=== PATIENT | female | born 1975 | race Caucasian/White ===

== ENCOUNTER 2016-11-01 09:42 | Emergency (ER) | payer MEDICARE, OTHER ==
[2016-11-01 09:46] VITALS: RESP 18
[2016-11-01] MEDS ORDERED: SODIUM CHLORIDE 0.9% 1,000 ML IV STA ×2 (10:10)
[2016-11-01] MEDS ORDERED: LORazepam 2 MG/ML SYRINGE IV STA (10:11)
[2016-11-01] MEDS ORDERED: KETOROLAC 30 MG/ML 1 ML VIAL IVP STA (10:12)
[2016-11-01 10:29] LABS: Basophils % (A) 0 %; CH 29.4; CHCM 31.8; Eosinophils # (A) 0.3 k/uL (0-0.7); Eosinophils % (A) 4 %; HCT 40.8 % (34.0-46.0); HDW 3.12; HGB 12.9 gm/dL (11.4-16.0); Hypochromasia Slight; Luc # (Auto) 0.15; Luc % (Auto) 2; Lymphocytes # (A) 1.9 k/uL (1.0-4.8); Lymphocytes % (A) 27 %; MCH 29.4 pg (25.0-35.0); MCHC 31.6 g/dL (31.0-37.0); Mean Platelet Volume 7.3; Monocytes # (A) 0.3 k/uL (0-1.0); Monocytes % (A) 4 %; Neutrophils # (A) 4.5 k/uL (1.3-7.7); Neutrophils % (A) 63 %; RBC 4.38 m/uL (3.80-5.40); RDW 14.4 % (11.5-15.5); WBC 7.2 k/uL (3.8-10.6); WBC (Perox) 7.67
[2016-11-01 10:41] LABS: ALT 27 U/L (9-52); AST 23 U/L (14-36); Alkaline Phosphatase 73 U/L (38-126); Anion Gap 12 mmol/L; Blood Urea Nitrogen 9 mg/dL (7-17); Calcium 8.9 mg/dL (8.4-10.2); Carbon Dioxide 21 mmol/L (22-30); Chloride 108 mmol/L (98-107); Glucose 104 mg/dL (74-99); Non-African American GFR(MDRD) >60 (>60 ml/min/1.73 sqM); Potassium 3.9 mmol/L (3.5-5.1); Sodium 141 mmol/L (137-145); Total Bilirubin 0.5 mg/dL (0.2-1.3); Total Protein 6.9 g/dL (6.3-8.2)
--- NOTE | 2016-11-01 10:51 | CT ---
EXAMINATION TYPE: CT brain wo con DATE OF EXAM: 11/01/2016 10:39 AM COMPARISON: 02/25/2016 HISTORY: seizure CT DLP: [address] of the brain was performed. The ventricles, basal cisterns and sulci overlying the cerebral convexities demonstrate a normal appe arance. There is no evidence for intracranial hemorrhage or sulcal effacement. No mass effects are seen. Osseous calvarium is intact. Stable Large hyperdense scalp lesion right parietal scalp. If symptoms persist consider MRI as clinically warranted. IMPRESSION: 1. No acute intracranial process is seen at this time.
[2016-11-01 11:56] LABS: Amorphous Sediment,Urine Few /hpf; Appearance,Urine Cloudy (Clear); Bilirubin,Urine Negative (Negative); Glucose,Urine (UA) Negative (Negative); Ketones,Urine Negative (Negative); Leukocyte Esterase,Urine Negative (Negative); Mucus,Urine Rare /hpf; Nitrite,Urine Negative (Negative); PH, Urine 7.5 (5.0-8.0); Particle Count 9961; Protein,Urine Negative (Negative); Specific Gravity,Urine 1.016 (1.001-1.035); Squamous Epithelial Cell,Urine 1 /hpf (0-4); UA Billing (MACRO vs. MICRO) MICRO; Urobilinogen,Urine <2.0 mg/dL (<2.0)
--- NOTE | 2016-11-01 12:39 | XR ---
EXAMINATION TYPE: XR chest 2V DATE OF EXAM: 11/01/2016 12:35 PM HISTORY: possible infiltrate. REFERENCE: NONE. FINDINGS: The heart is enlarged. There is vascular congestion. I could not exclude some mild edema. N o definite infiltrate is seen. No definite pleural fluid is seen. IMPRESSION: FINDINGS MOST CONSISTENT WITH EARLY HEART FAILURE.
[2016-11-01] MEDS ORDERED: TOPIRAMATE 100 MG TAB PO STA (13:01)
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
[2016-11-01 13:30] VITALS: BP 126/60; PULSE 84; TEMP 97.3
== END 2016-11-01 13:21 | disposition home or self-care (01) ==
LOC: EC 09:42
DX: G40.909 Epilepsy, unspecified, not intractable, without status epilepticus (principal); R51 Headache; G93.89 Other specified disorders of brain; E66.01 Morbid (severe) obesity due to excess calories; Z68.41 Body mass index [BMI] 40.0-44.9, adult; Z79.899 Other long term (current) drug therapy
CPT/HCPCS: 99285; 96374; 96375; 96361 ×3; 36415; 93005; 80053; 80201; 85025; 81001; 87040; 87086; 87502; 71020; 70450; J2060; J1885

== ENCOUNTER → 2018-07-28 | Outpatient (CLI) | payer MEDICARE, OTHER | LOC: LABWHC1 11:56 | PROVIDERS: ATTEND Psychiatry & Neurology Neurology | DX: G40.109 Localization-related (focal) (partial) symptomatic epilepsy and epileptic syndromes with simple partial seizures, not intractable, without status epilepticus (principal) | CPT/HCPCS: 36415; 80201 ==

== ENCOUNTER → 2019-05-23 | Outpatient (CLI) | payer MEDICARE, OTHER | END | disposition home or self-care (01) | LOC: LABWHC1 07:59 | PROVIDERS: ATTEND Psychiatry & Neurology Neurology | DX: S06.9X9S Unspecified intracranial injury with loss of consciousness of unspecified duration, sequela (principal) | CPT/HCPCS: 36415; 80201 ==

== ENCOUNTER → 2020-07-22 | Outpatient (CLI) | payer MEDICARE, OTHER ==
[2020-07-24 07:59] LABS: Topiramate 12.4 ug/mL (2.0-20.0)
== END | disposition home or self-care (01) ==
LOC: LABWHC1 09:24
PROVIDERS: ATTEND Psychiatry & Neurology Neurology
DX: G40.909 Epilepsy, unspecified, not intractable, without status epilepticus (principal)
CPT/HCPCS: 36415; 80201; 80235

== ENCOUNTER 2020-09-09 08:38 | Emergency (ER) | payer MEDICARE, OTHER ==
[2020-09-09 08:51] VITALS: RESP 18
[2020-09-09] MEDS ORDERED: SODIUM CHLORIDE 0.9% 1,000 ML IV STA (09:07)
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
[2020-09-09 09:24] LABS: Basophils % (A) 0 %; Eosinophils # (A) 0.3 k/uL (0-0.7); Eosinophils % (A) 3 %; HCT 37.4 % (34.0-46.0); HGB 12.5 gm/dL (11.4-16.0); Lymphocytes # (A) 1.7 k/uL (1.0-4.8); Lymphocytes % (A) 17 %; MCH 29.7 pg (25.0-35.0); MCHC 33.5 g/dL (31.0-37.0); MCV 88.8 fL (80.0-100.0); Mean Platelet Volume 6.7; Monocytes # (A) 0.4 k/uL (0-1.0); Monocytes % (A) 4 %; Neutrophils # (A) 7.5 k/uL (1.3-7.7); Neutrophils % (A) 74 %; Platelet Count 243 k/uL (150-450); RBC 4.21 m/uL (3.80-5.40); RDW 15.4 % (11.5-15.5); WBC 10.1 k/uL (3.8-10.6)
[2020-09-09 09:36] LABS: ALT 18 U/L (4-34); AST 23 U/L (14-36); Acetaminophen <10.0 ug/mL; African American GFR (CKD) >90 (>60 ml/min/1.73 sqM); Albumin 4.1 g/dL (3.5-5.0); Alkaline Phosphatase 66 U/L (38-126); Anion Gap 11 mmol/L; Blood Urea Nitrogen 11 mg/dL (7-17); Carbon Dioxide 21 mmol/L (22-30); Chloride 105 mmol/L (98-107); Glucose 118 mg/dL (74-99); Non-African American GFR(CKD) >90 (>60 ml/min/1.73 sqM); Potassium 3.9 mmol/L (3.5-5.1); Salicylate <1.0 mg/dL; Sodium 137 mmol/L (137-145); Total Bilirubin 0.5 mg/dL (0.2-1.3); Total Protein 7.2 g/dL (6.3-8.2)
[2020-09-09] MEDS ORDERED: ACETAMINOPHEN TAB 325 MG TAB PO STA (09:37)
[2020-09-09] MEDS ORDERED: SERTRALINE 100 MG TAB PO STA (09:48)
[2020-09-09] MEDS ORDERED: LACOSAMIDE 50 MG TABLET PO STA (09:48)
[2020-09-09] MEDS ORDERED: busPIRone HCl 5 MG TAB PO STA (09:48)
[2020-09-09] MEDS ORDERED: TOPIRAMATE 100 MG TAB PO STA (09:49)
[2020-09-09] MEDS ORDERED: ARIPiprazole 5 MG TAB PO SCH (10:00)
--- NOTE | 2020-09-09 11:07 | CT ---
EXAMINATION TYPE: CT brain wally huerta DATE OF EXAM: 09/09/2020 COMPARISON: 11/01/2016 HISTORY: Seizure CT DLP: 1623.3 mGycm, Automated exposure control for dose reduction was used. CONTRAST: Patient injected with 0 mL of Isovue 300. CT of the brain is performed utilizing 3 mm thick sections through the posterior fossa and 3 mm thick sections through the remaining calvarium. Study is performed within 24 hours of arrival to the hospital. No abnormal hyperdensity is present to suggest an acute intracranial hemorrhage. No mass lesion is evident. No acute infarcts are evident. Ventricles and sulci are appropriate for the patient age. Paranasal sinuses and mastoid air cells within the nstlo-or-kveh are clear. There is a large rounded heterogenous area superficial to the calvarium at the right parietal vertex. This currently measures 7.3 x 6.4 cm. Previous measurement 5.1 x 5.7. IMPRESSIONS: 1. Normal intracranial findings. 2. Enlarging heterogenous mass superficial right vertex CT cervical spine. COMPARISON: None CT of the cervical spine is performed in the axial plane at 2 mm thick sections. Reconstructed image s in the coronal, and sagittal plane are reviewed on the computer. No acute fractures are evident. Vertebral body alignment is straightened. Disc heights are preserved. Vertebral body heights are preserved. No spinal canal stenosis is evident. Some mild lower cervical spine endplate spurring is noted. No neural foraminal stenosis is evident. IMPRESSIONS: 1. No acute osseous abnormality cervical spine
[2020-09-09 11:27] VITALS: BP 130/82; PULSE 72; TEMP 97.5
== END 2020-09-09 12:07 | disposition home or self-care (01) ==
LOC: EC 08:38 → EEVIPCON 08:38 → EC 12:07
DX: G40.909 Epilepsy, unspecified, not intractable, without status epilepticus (principal); F79 Unspecified intellectual disabilities; Z79.899 Other long term (current) drug therapy
CPT/HCPCS: 36415; 70450; 72125; 80053; 80143; 80201; 80235; 83520; 85025; 93005; 96360; 96361; 99284

== ENCOUNTER → 2020-11-03 | Outpatient (CLI) | payer MEDICARE, OTHER ==
[2020-11-06 13:13] LABS: Topiramate 13.2 ug/mL (2.0-20.0)
== END | disposition home or self-care (01) ==
LOC: LABWHC1 08:16
PROVIDERS: ATTEND Psychiatry & Neurology Neurology
DX: G40.909 Epilepsy, unspecified, not intractable, without status epilepticus (principal)
CPT/HCPCS: 36415; 80201; 80235

== ENCOUNTER 2021-04-23 09:00 | Day surgery (SDC) | payer MEDICARE, OTHER ==
[2021-04-17 11:07] VITALS: BMI 44.6
[~2021-04-23 09:00] MED LIST: DEXAMETHASONE SOD PHOSPHATE 4 MG/ML 1 ML VIAL IV ONE; FAMOTIDINE 20 MG/2 ML VIAL IV PRN; LACTATED RINGERS 1,000 ML IV SCH; ONDANSETRON 4 MG/2 ML VIAL IVP ONE; ONDANSETRON 4 MG/2 ML VIAL IVP PRN
[2021-04-23] MEDS ORDERED: SUCCINYLCHOLINE CHLORIDE 100 MG/5 ML SYR IV ONE (09:26)
[2021-04-23] MEDS ORDERED: ROCURONIUM 10 MG/ML (5 ML VIAL) IV ONE (09:26)
[2021-04-23] MEDS ORDERED: GLYCOPYRROLATE 0.2 MG/ML 2 ML VIAL ONE (09:26)
[2021-04-23] MEDS ORDERED: NEOSTIGMINE 1 MG/ML 10 ML VIAL ONE (09:26)
[2021-04-23] MEDS ORDERED: LIDOCAINE 1% INJ 10MG/ML (20 ML MDV) ONE (09:26)
[2021-04-23] MEDS ORDERED: fentaNYL (PF) 50 MCG/ML 2 ML AMP ONE (09:26)
[2021-04-23] MEDS ORDERED: MIDAZOLAM 2 MG/2 ML VIAL ONE (09:26)
[2021-04-23] MEDS ORDERED: PHENYLEPHRINE-0.9% NACL SYG 1,000 MCG/10 ML SYRINGE ONE (09:26)
[2021-04-23] MEDS ORDERED: PROPOFOL 10 MG/ML 20 ML VIAL IV ONE (09:26)
[2021-04-23] MEDS ORDERED: BUPIVACAINE (PF) 0.5% 30 ML VIAL SQ ONE ×2 (10:09)
[2021-04-23] MEDS ORDERED: LIDOCAINE 2%-EPI 1:100,000 20 ML VIAL SQ ONE ×2 (10:09)
[2021-04-23 11:47] VITALS: TEMP 97.4
--- NOTE | 2021-04-23 11:49 | P.OP ---
Date of Procedure: 04/23/21 Preoperative Diagnosis: 8 x 8 cm scalp mass Postoperative Diagnosis: Same Procedure(s) Performed: Excision of an 8 x 8 cm scalp mass with reconstruction utilizing a bilateral crescent shaped rotational flap closure with a secondary defect measuring 16 x 16 cm Anesthesia: GRETTA Surgeon: Buddy Bowen IV fluids (ml): 25 Pathology: other (Large scalp mass) Condition: stable Disposition: PACU Indications for Procedure: Patient has had a mass on scalp for many years and it has become foul-smelling and infectious. Surgical removal was recommended. All risks, benefits, and alternative therapies were discussed. Consent was obtained and all questions were answered. Operative Findings: Very large 8 x 8 cm infected cystic mass of the scalp Description of Procedure: This patient was taken to the operative room and placed in the supine position. A general inhalation anesthetic was administered to the patient by mask and subsequently intubated with a cuffed endotracheal tube by the department of anesthesia with a functioning IV line in place. The patient was monitored throughout the entire case by the department of anesthesia. The scalp was sterilely prepped and draped in usual fashion and hair was removed around this mass. We injected the scalp with lidocaine and bupivacaine with epinephrine and 10 minutes were allowed wait for full vasoconstrictive effects to take place. At this time a circular incision was made surrounding this very large 8 x 8 cm mass of the scalp. Cultures were taken and the mass was removed with a 15 blade delicate plastic scissors Brown-Adams forceps. Hemostasis was obtained with use of electrocoagulation. We were unable to close this directly and did try intraoperative tissue expansion. Therefore a bilateral crescent rotational flap was developed and rotated and position. The secondary defect measured 16 x 16 cm and we closed this with 0 Vicryl in an interrupted type fashion and closed with 0 Vicryl in a running locking fashion and then closed the smaller Regions with use of 40 rapid Vicryl. Excellent approximation was obtained. A compression dressing was placed and a follow-up is scheduled to return to the office in 2 weeks for recheck and for suture removal. The patient tolerated this well and patient is to call me if any problems should arise.
[2021-04-23] MEDS: HYDROmorphone 0.5 MG/0.5 ML SYRINGE IVP PRN ×2 (11:58→12:08)
[2021-04-23] MEDS ORDERED: LACTATED RINGERS 1,000 ML IV ONE (12:18)
[2021-04-23 12:59] VITALS: RESP 16
[2021-04-23 13:48] VITALS: BP 128/83; PULSE 98
== END 2021-04-23 14:37 | disposition home or self-care (01) ==
LOC: OR 09:00
PROVIDERS: ATTEND Otolaryngology
DX: L72.12 Trichodermal cyst (principal); E11.9 Type 2 diabetes mellitus without complications; G40.909 Epilepsy, unspecified, not intractable, without status epilepticus; Z79.899 Other long term (current) drug therapy; F32.9 Major depressive disorder, single episode, unspecified; E78.5 Hyperlipidemia, unspecified; F79 Unspecified intellectual disabilities
CPT/HCPCS: 81025; 88305; 84703; 87070; 87205; 87075; 14021; J2250; J1100; J2710; J2405; J0690; J2001; J3010; J2370; J0330; J2704; J1170

== ENCOUNTER → 2022-02-16 | Outpatient (CLI) | payer MEDICARE, OTHER ==
[2022-02-18 08:44] LABS: Topiramate 11.6 ug/mL (2.0-20.0)
== END | disposition home or self-care (01) ==
LOC: LABWHC1 08:54
PROVIDERS: ATTEND Psychiatry & Neurology Neurology
DX: G40.909 Epilepsy, unspecified, not intractable, without status epilepticus (principal)
CPT/HCPCS: 36415; 80201; 80235

== ENCOUNTER → 2022-11-19 | Outpatient (CLI) | payer MEDICARE, OTHER ==
[2022-11-22 07:56] LABS: Topiramate 12.6 ug/mL (2.0-20.0)
== END | disposition home or self-care (01) ==
LOC: LABWHC1 09:36
PROVIDERS: ATTEND Psychiatry & Neurology Neurology
DX: G40.909 Epilepsy, unspecified, not intractable, without status epilepticus (principal)
CPT/HCPCS: 36415; 80201; 80235

== ENCOUNTER → 2023-04-23 | Outpatient (CLI) | payer MEDICARE, OTHER ==
[2023-04-25 09:58] LABS: Topiramate 11.7 ug/mL (2.0-20.0)
== END | disposition home or self-care (01) ==
LOC: LABWHC1 09:26
PROVIDERS: ATTEND Psychiatry & Neurology Neurology
DX: G40.909 Epilepsy, unspecified, not intractable, without status epilepticus (principal)
CPT/HCPCS: 36415; 80201; 80235

== ENCOUNTER → 2023-11-16 | Outpatient (CLI) | payer MEDICARE, OTHER ==
--- NOTE | 2023-11-16 17:55 | CT ---
EXAMINATION TYPE: CT brain wo con CT DLP: 1227 mGycm, Automated exposure control for dose reduction was used. DATE OF EXAM: 11/16/2023 5:21 PM COMPARISON: 09/09/2020. CLINICAL INDICATION:Female, 47 years old with history of G40.909, CYST RECENTLY REMOVED FROM SCALP TECHNIQUE: Brain: Axial CT images of the brain were obtained with coronal and sagittal reformats created and rev iewed. Contrast used: None. Oral contrast used: None. FINDINGS: Brain: Extra-axial spaces: No abnormal extra-axial fluid collections. Ventricular system: Within normal limits Cerebral parenchyma: No acute intraparenchymal hemorrhage or mass effect. The hsu-white junction is well differentiated. Cerebellum: Unremarkable. Mass effect: No evidence of midline shift. Intracranial vasculature: unremarkable Soft tissues: Post surgical changes to the scalp with cystic structure removed seen on 09/29/2020. No new masses identified. Calvarium/osseous structures: No depressed skull fracture. Paranasal sinuses and mastoid air cells: Mild scattered paranasal sinus disease. Visualized orbits: Orbital contents are intact. IMPRESSION: No acute intracranial process. Posttreatment changes to the right scalp. No evidence for new mass. The osseous structures appear int act.
== END | disposition home or self-care (01) ==
LOC: RADCTMAIN 16:41
PROVIDERS: ATTEND Psychiatry & Neurology Neurology
DX: G40.909 Epilepsy, unspecified, not intractable, without status epilepticus (principal)
CPT/HCPCS: 70450

== ENCOUNTER 2024-04-03 15:30 | Emergency (ER) | payer MEDICARE, OTHER ==
[2024-04-03 15:41] VITALS: RESP 18
--- NOTE | 2024-04-03 16:04 | ED ---
General Adult HPI - General Chief complaint: Seizure Stated complaint: Seizures Time Seen by Provider: 04/03/24 15:34 Source: EMS Mode of arrival: EMS - History of Present Illness Initial comments: Dictation was produced using [employer] dictation software. please excuse any grammatical, word or spelling errors. Chief Complaint: 48-year-old female history of seizure presents to the ER for seizure History of Present Illness: Patient is a 48-year-old female she has past medical history of seizure disorder she takes Topamax and Vimpat. She sees Dr. Dudley. Patient was at home sitting down when mother left the room she came back and noticed that patient was having a seizure. Patient has not had a seizure in several months. She has been compliant with her medications. Comes at this time. The ROS documented in this emergency department record has been reviewed and confirmed by me. Those systems with pertinent positive or negative responses have been documented in the HPI. All other systems are other negative and/or noncontributory. - Related Data Home Medications Medication Instructions Recorded Confirmed ARIPiprazole [Abilify] 5 mg PO DAILY@1000 02/25/16 04/23/21 Potassium Chloride [Klor-Con] 20 meq PO DAILY@1600 02/25/16 04/23/21 Sertraline [Zoloft] 100 mg PO BID@1000,2200 02/25/16 04/23/21 Ergocalciferol [Vitamin D2 (1250 1,250 mcg PO Q30D 09/09/20 04/23/21 Mcg = 01213 Iu)] Lacosamide [Vimpat] 50 mg PO BID 09/09/20 04/23/21 Lacosamide [Vimpat] 100 mg PO BID 09/09/20 04/23/21 Topiramate [Topamax] 50 mg PO BID@1000,2200 09/09/20 04/23/21 Topiramate [Topamax] 200 mg PO BID@1000,2200 09/09/20 04/23/21 Amoxic-Pot Clav 875-125Mg 1 tab PO Q12HR 04/17/21 04/23/21 [Augmentin 875-125] Simvastatin [Zocor] 80 mg PO W/SUPPER 04/17/21 04/23/21 Allergies Allergy/AdvReac Type Severity Reaction Status Date / Time No Known Allergies Allergy Verified 04/03/24 15:41 Review of Systems ROS Statement: Those systems with pertinent positive or pertinent negative responses have been documented in the HPI. ROS Other: All systems not noted in ROS Statement are negative. Past Medical History Past Medical History: Hyperlipidemia, Seizure Disorder Additional Past Medical History / Comment(s): mental retardation, fluid on brain from (skull fracture-dropped at 3 months), last seizure 2 months ago, arthritis, History of Any Multi-Drug Resistant Organisms: None Reported Past Surgical History: Orthopedic Surgery Additional Past Surgical History / Comment(s): left wrist surgery Past Anesthesia/Blood Transfusion Reactions: No Reported Reaction Past Psychological History: Depression Smoking Status: Never smoker - Past Family History Mother Family Medical History: No Reported History General Exam - General Exam Comments Initial Comments: PHYSICAL EXAM: General Impression: Alert and oriented x3, not in acute distress HEENT: Normocephalic atraumatic, extra-ocular movements intact, pupils equal and reactive to light bilaterally, mucous membranes moist. Cardiovascular: Heart regular rate and rhythm Chest: Able to complete full sentences, no retractions, no tachypnea Abdomen: abdomen soft, non-tender, non-distended, no organomegaly Musculoskeletal: Pulses present and equal in all extremities, no peripheral edema Motor: no focal deficits noted Neurological: CN II-XII grossly intact, no focal motor or sensory deficits noted Skin: Intact with no visualized rashes Psych: Normal affect and mood Course Vital Signs 04/03/24 15:32 Temperature 97.9 F Pulse Rate 90 Respiratory 18 Rate Blood Pressure 146/76 O2 Sat by Pulse 97 Oximetry Medical Decision Making - Medical Decision Making Was pt. sent in by a medical professional or institution (, PA, [facility]ER, urgent care, hospital, or snf...) When possible be specific @ -No Did you speak to anyone other than the patient for history (EMS, parent, family, police, friend...)? What history was obtained from this source @ -No Did you review nursing and triage notes (agree or disagree)? Why? @ -I reviewed and agree with nursing and triage notes Were old charts reviewed (outside hosp., previous admission, EMS record, old EKG, old radiological studies, urgent care reports/EKG's, snf records)? Report findings @ -No old charts were reviewed Differential Diagnosis (chest pain, altered mental status, abdominal pain women, abdominal pain men, vaginal bleeding, musculoskeletal, weakness, fever, dyspnea, syncope, headache, dizziness, GI bleed, back pain, seizure, CVA, palpatations, mental health)? @ -Differential Seizure: Recurrent seizure disorder, febrile seizure, alcohol withdrawal, stimulants, meningitis, encephalitis, intercranial hemorrhage, intracranial tumor, stroke, eclampsia, thyrotoxicosis, hypocalcemia, hyponatremia, hypernatremia, hypomagnesemia, psychogenic, this is not meant to be an all-inclusive list. EKG interpreted by me (3pts min.). @ -My EKG interpretation: Ventricular rate 84, sinus rhythm, period of old 135, QRS 108, QTc 417. No AL prolongation, no QTC prolongation, no ST or T-wave changes noted. Overall, this EKG is unremarkable X-rays interpreted by me (1pt min.). @ -None done CT interpreted by me (1pt min.). @ -None done U/S interpreted by me (1pt. min.). @ -None done What testing was considered but not performed or refused? (CT, X-rays, U/S, labs)? Why? @ -None What meds were considered but not given or refused? Why? @ -None Was smoking cessation discussed for >3mins.? @ -No Were there social determinants of health that impacted care today? How? (Homelessness, low income, unemployed, alcoholism, drug addiction, transportation, low edu. Level, literacy, decrease access to med. care, [facility], rehab)? @ -No Was there de-escalation of care discussed even if they declined (Discuss DNR or withdrawal of care, Hospice)? DNR status @ -No What co-morbidities impacted this encounter? (DM, HTN, Smoking, COPD, CAD, Cancer, CVA, ARF, Chemo, Hep., AIDS, mental health diagnosis, sleep apnea, morbid obesity)? @ -History of seizure Was patient admitted / discharged? Hospital course, mention meds given and route, prescriptions, significant lab abnormalities, going to OR and other pertinent info. @ -40-year-old female history of seizure disorder presents to the emergency department breakthrough seizure. Patient well-appearing at the bedside. Vital signs stable. Laboratory evaluation obtained. CBC metabolic panel is unremarkable. Patient reevaluated at bedside 4:52 PM vital stable medical addition. Patient discharged advised follow-up with neurologist. Did you discuss the management of the patient with other professionals (professionals i.e. , PA, [facility]ER, lab, RT, psych nurse, foster care social worker, firer automatic stoker, teacher, community reinvestment act officer, onsite case manager)? Give summary @ -No Was critical care preformed (if so, how long)? @ -No Undiagnosed new problem with uncertain prognosis? @ -No Drug Therapy requiring intensive monitoring for toxicity (Heparin, Nitro, Insulin, Cardizem)? @ -No Were any procedures done? @ -No Diagnosis/symptom? Acute, or Chronic, or Acute on Chronic? Uncomplicated (without systemic symptoms) or Complicated (systemic symptoms)? @ -Seizure Side effects of treatment? @ -No Exacerbation, Progression, or Severe Exacerbation? @ -No Poses a threat to life or bodily function? How? (Chest pain, [place], [place], pneumonia, PE, COPD, DKA, ARF, appy, cholecystitis, CVA, Diverticulitis, Homicidal, Suicidal, threat to staff... and all critical care pts) @ -yes - Lab Data Result diagrams: 04/03/24 16:10 04/03/24 16:10 Lab Results 04/03/24 04/03/24 Range/Units 16:10 16:10 WBC 6.5 (3.8-10.6) k/uL RBC 3.80 (3.80-5.40) m/uL Hgb 11.2 L (11.4-16.0) gm/dL Hct 35.3 (34.0-46.0) % MCV 92.8 (80.0-100.0) fL MCH 29.5 (25.0-35.0) pg MCHC 31.8 (31.0-37.0) g/dL RDW 15.3 (11.5-15.5) % Plt Count 225 (150-450) k/uL MPV 7.2 Neutrophils % 60 % Lymphocytes % 25 % Monocytes % 5 % Eosinophils % 8 % Basophils % 1 % Neutrophils # 3.9 (1.3-7.7) k/uL Lymphocytes # 1.6 (1.0-4.8) k/uL Monocytes # 0.3 (0-1.0) k/uL Eosinophils # 0.5 (0-0.7) k/uL Basophils # 0.0 (0-0.2) k/uL Hypochromasia Marked Poikilocytosis Slight Sodium 142 (137-145) mmol/L Potassium 4.8 (3.5-5.1) mmol/L Chloride 112 H (98-107) mmol/L Carbon Dioxide 25 (22-30) mmol/L Anion Gap 5 mmol/L BUN 12 (7-17) mg/dL Creatinine 0.66 (0.52-1.04) mg/dL Est GFR (CKD-EPI)AfAm >90 (>60 ml/min/1.73 sqM) Est GFR (CKD-EPI)NonAf >90 (>60 ml/min/1.73 sqM) Glucose 97 (74-99) mg/dL Calcium 8.9 (8.4-10.2) mg/dL Magnesium 2.1 (1.6-2.3) mg/dL Disposition Clinical Impression: Seizure Disposition: HOME SELF-CARE Condition: Good Instructions (If sedation given, give patient instructions): Recurrent Seizures in Adults (ED) Is patient prescribed a controlled substance at d/c from ED?: No Referrals: Rm Singer MD [Primary Care Provider] - 1-2 days Time of Disposition: 16:52
[2024-04-03 16:21] LABS: Basophils % (A) 1 %; Eosinophils # (A) 0.5 k/uL (0-0.7); Eosinophils % (A) 8 %; HCT 35.3 % (34.0-46.0); HGB 11.2 gm/dL (11.4-16.0); Hypochromasia Marked; Lymphocytes # (A) 1.6 k/uL (1.0-4.8); Lymphocytes % (A) 25 %; MCH 29.5 pg (25.0-35.0); MCHC 31.8 g/dL (31.0-37.0); MCV 92.8 fL (80.0-100.0); Mean Platelet Volume 7.2; Monocytes # (A) 0.3 k/uL (0-1.0); Monocytes % (A) 5 %; Neutrophils # (A) 3.9 k/uL (1.3-7.7); Neutrophils % (A) 60 %; Platelet Count 225 k/uL (150-450); Poikilocytosis Slight; RDW 15.3 % (11.5-15.5); WBC 6.5 k/uL (3.8-10.6)
[2024-04-03 16:31] LABS: African American GFR (CKD) >90 (>60 ml/min/1.73 sqM); Anion Gap 5 mmol/L; Blood Urea Nitrogen 12 mg/dL (7-17); Calcium 8.9 mg/dL (8.4-10.2); Carbon Dioxide 25 mmol/L (22-30); Chloride 112 mmol/L (98-107); Non-African American GFR(CKD) >90 (>60 ml/min/1.73 sqM); Sodium 142 mmol/L (137-145)
[2024-04-03 16:39] LABS: Glucose 97 mg/dL (74-99); Magnesium 2.1 mg/dL (1.6-2.3); Potassium 4.8 mmol/L (3.5-5.1)
[2024-04-03 17:13] VITALS: BP 136/77; PULSE 81; TEMP 98.3
== END 2024-04-03 17:13 | disposition home or self-care (01) ==
LOC: EC 15:30
DX: G40.909 Epilepsy, unspecified, not intractable, without status epilepticus (principal)
CPT/HCPCS: 36415; 80048; 83735; 85025; 93005; 99284

== ENCOUNTER → 2024-04-13 | Outpatient (CLI) | payer MEDICARE, OTHER ==
[2024-04-16 07:08] LABS: Topiramate 12.6 ug/mL (2.0-20.0)
== END | disposition home or self-care (01) ==
LOC: LABWHC1 10:04
PROVIDERS: ATTEND Psychiatry & Neurology Neurology
DX: G40.909 Epilepsy, unspecified, not intractable, without status epilepticus (principal)
CPT/HCPCS: 36415; 80201; 80235